=== PATIENT | male | born 1970 | race African-American/Black ===

== ENCOUNTER 2018-04-01 09:00 | Emergency (ER) | payer MEDICAID | END 2018-04-01 12:12 | disposition home or self-care (01) | LOC: D.ER 09:00 | DX: M25.512 Pain in left shoulder (principal); M25.511 Pain in right shoulder; M79.632 Pain in left forearm; M54.5 Low back pain; W01.0XXA Fall on same level from slipping, tripping and stumbling without subsequent striking against object, initial encounter; Y93.89 Activity, other specified; Y92.019 Unspecified place in single-family (private) house as the place of occurrence of the external cause; F17.200 Nicotine dependence, unspecified, uncomplicated ==